=== PATIENT | male | born 1950 | race Hispanic/Latino ===

== ENCOUNTER → 2017-06-16 | Outpatient (CLI) | payer OTHER, MEDICARE ==
[2017-06-16 08:41] LABS: CREATININE 1.1 mg/dL (0.5-1.5)
== END | disposition home or self-care (01) ==
LOC: LAB 08:09
PROVIDERS: ATTEND Student in an Organized Health Care Education/Training Program
DX: I63.9 Cerebral infarction, unspecified (principal)
CPT/HCPCS: 36415; 82565; 84520

== ENCOUNTER → 2017-06-17 | Outpatient (CLI) | payer OTHER, MEDICARE ==
[~2017-06-17] MED LIST: GADOBENATE DIMEGLUMINE 20 ML IV ONE
== END | disposition home or self-care (01) ==
LOC: RAH 10:13
PROVIDERS: ATTEND Student in an Organized Health Care Education/Training Program
DX: I67.9 Cerebrovascular disease, unspecified (principal); I67.82 Cerebral ischemia; I63.8 Other cerebral infarction
CPT/HCPCS: 70553; A9577

== ENCOUNTER → 2019-10-19 | Outpatient (CLI) | payer OTHER, MEDICARE | END | disposition home or self-care (01) | LOC: RAH 10:00 | PROVIDERS: ATTEND Family Medicine | DX: I35.8 Other nonrheumatic aortic valve disorders (principal); I65.23 Occlusion and stenosis of bilateral carotid arteries | CPT/HCPCS: 93306; 93356; 93880 ==